=== PATIENT | female | born 1950 | race Caucasian/White ===

== ENCOUNTER → 2018-06-01 | Outpatient (REF) | payer MEDICARE, OTHER | LOC: M SFHCCLAY 14:38 | DX: E78.5 Hyperlipidemia, unspecified (principal); Z53.8 Procedure and treatment not carried out for other reasons ==

== ENCOUNTER → 2020-12-15 | Outpatient (REF) | payer MEDICARE, OTHER ==
[~2020-12-15] MED LIST: ACET65TA OR; AMLO10TA OR; CO-Q 10 PO; COUM10TA OR; FISHOIL PO; HYDR25TA6 OR; LISI20TA5 OR; LOVE1INJ SC; LOVE1INJ SQ; MELOPOW PO; METO25TA2 OR; MULTIVIT PO; PERC5TAB8 OR; WARFARIN PO
== END ==
LOC: M SFHCCLAY 08:18
PROVIDERS: ATTEND Family Medicine
DX: E78.5 Hyperlipidemia, unspecified (principal); I10 Essential (primary) hypertension

== ENCOUNTER 2023-05-18 17:42 | Emergency (ER) | payer MEDICARE, OTHER ==
[~2023-05-18] VITALS: Ht 170.2 cm; Wt 109.1 kg
[2023-05-18 17:43] VITALS: TEMP 98.1
[2023-05-18] MEDS ORDERED: methocarbamoL 500 MG TAB PO ONE (20:35)
[2023-05-18] MEDS ORDERED: dexAMETHasone 20MG/5ML VIAL IV ONE (20:35)
[2023-05-18] MEDS ORDERED: MORPHINE 4 MG/ML 1ML VIAL IV ONE (20:35)
[2023-05-18] MEDS ORDERED: AMOXICILLIN 500 MG CAP PO ONE (22:30)
[2023-05-18] MEDS ORDERED: ACETAMINOPHEN 500 MG TAB PO ONE (22:30)
[2023-05-18] MEDS ORDERED: METH-1164 PO (23:16)
[2023-05-18] MEDS ORDERED: PRED20TA PO (23:16)
[2023-05-18 23:31] VITALS: BP 196/79; O2SAT 97
== END 2023-05-18 23:31 | disposition home or self-care (01) ==
LOC: M ED 17:42
DX: M51.36 Other intervertebral disc degeneration, lumbar region (principal); M54.30 Sciatica, unspecified side; M48.061 Spinal stenosis, lumbar region without neurogenic claudication; K57.30 Diverticulosis of large intestine without perforation or abscess without bleeding; I10 Essential (primary) hypertension; F10.10 Alcohol abuse, uncomplicated; Z86.718 Personal history of other venous thrombosis and embolism; Z79.811 Long term (current) use of aromatase inhibitors; Z79.810 Long term (current) use of selective estrogen receptor modulators (SERMs); Z79.01 Long term (current) use of anticoagulants; Z79.899 Other long term (current) drug therapy
CPT/HCPCS: 72131; 81001; 96374; 96375; 99284; J1100

== ENCOUNTER → 2023-07-13 | Outpatient (CLI) | payer MEDICARE, OTHER ==
[~2023-07-13] MED LIST changes: +METH-1164 PO; +PRED20TA PO
== END ==
LOC: M PLAIMG 06:46
PROVIDERS: ATTEND Physician Assistant Surgical
DX: M47.896 Other spondylosis, lumbar region (principal)

== ENCOUNTER → 2025-09-11 | Outpatient (REF) | payer MEDICARE, OTHER ==
[2025-09-11 18:42] LABS: FREE T4 2.78 NG/DL (0.89-1.76)
[2025-09-11 18:46] LABS: THYROID PEROXIDASE ANTIBODY < 28.0 U/ML (<60.0); TOTAL T3 171.4 NG/DL (60.0-181.0)
== END ==
LOC: M LABDRAWC 17:42
PROVIDERS: ATTEND Nurse Practitioner Family
DX: E05.00 Thyrotoxicosis with diffuse goiter without thyrotoxic crisis or storm (principal)